=== PATIENT | female | born 1995 | race Two or more races ===

== ENCOUNTER 2025-02-05 19:44 | Emergency (ER) | payer OTHER, SELFPAY ==
--- NOTE | ~2025-02-05 | XR_ITS ---
CLINICAL HISTORY: fall down stairs 3 view left foot Comparison: None Findings: Bones intact. No dislocations. No significant arthritic change or erosions. No ankle effusion. No radiopaque foreign body. IMPRESSION: 1. No acute findings. This document has been electronically signed by: Ralph Harrison MD on 02/05/2025 20:36:18
--- NOTE | ~2025-02-05 | XR_ITS ---
CLINICAL HISTORY: fall down stairs 3 view left ankle Comparison: None Findings: No acute fractures. Ankle mortise intact. No significant loss of joint space, osteophytes, or erosions. No ankle effusion. No radiopaque foreign body. IMPRESSION: 1. No acute findings. This document has been electronically signed by: Ralph Harrison MD on 02/05/2025 20:36:51
--- NOTE | 2025-02-05 19:47 | ED_ITS ---
HPI - Extremity Injury (Lower) General Chief Complaint: Extremity Injury, Lower Stated Complaint: ankle injury Time Seen by Provider: 02/06/25 00:29 Source: patient Mode of arrival: ambulatory Limitations: no limitations History of Present Illness ED Provider: moreno isaac np HPI Narrative: Patient is a 29-year-old female who presents emergency department for evaluation of traumatic left ankle pain s/p mechanical trip and fall on the stairs just prior to arrival. No head strike or loss of consciousness. Pain with weight- bearing/movement of the ankle primarily to the lateral malleolus. Denies prior injury. Denies numbness tingling or cold sensation to the ankle. Related Data Allergies Allergy/AdvReac Type Severity Reaction Status Date / Time dog dander [DOG DANDER] Allergy Mild SNEEZING Verified 02/05/25 19:50 Review of Systems Review of Systems: Yes all other systems are reviewed and are negative PMFSH Past Medical History Attestation statement: The following information was validated with the patient. Source: old records reviewed Physical Exam Vital Signs: Vital Signs: Last Vital Signs Temp 98.3 F 02/05/25 19:50 Pulse 89 02/05/25 19:50 Resp 18 02/05/25 19:50 BP 126/90 H 02/05/25 19:50 Pulse Ox 99 02/05/25 19:50 O2 Del Method Room Air 02/05/25 19:50 BMI result Body Mass Index 27.5 Appearance: Alert.?Oriented to person, place and time. No acute distress.?Normal affect. CVS: Heart sounds normal. Normal heart rate and rhythm.? Pulses normal.?? Respiratory: No respiratory distress.? Lung sounds clear to auscultation bilaterally? Skin: Skin warm and dry.? Normal skin color.?? Extremities: Localized edema to the left lateral malleolus with tenderness upon palpation. No ecchymosis. No deformity. 2+ DP/PT pulse. Decreased AROM with flexion and extension of the ankle. Neuro: Moves all extremities spontaneously. Sensation intact bilaterally. Ambulates with antalgic gait. Course Course Course Narrative: This is a Rapid Medical Exam performed in triage by Teresita He PA-C. Full HPI, ROS and PE to be performed by primary ED provider. 29-year-old female presenting to the ED c/o L ankle pain s/p trip & fall down stairs (3 stairs), misjudged the bottom step. Denies head trauma or LOC. unable to ambulate since incident PE: L ankle w/mild swelling & ttp. +ttp to lateral foot. NV intact Plan: X-ray Medical Decision Making Medical Decision Making MDM Narrative: Patient is a 29-year-old female presents emergency department for evaluation of traumatic left ankle pain as per HPI. Differential including fracture, dislocation, sprain. XR is without acute osseous abnormality favoring a sprain as etiology for pain. Extremities neurovascularly intact distally. Placed in an Aircast provided with crutches and reviewed conservative treatment. Outpatient follow-up with PCP discussed strict return precautions. All questions answered. Differential Diagnosis Differential Diagnoses: The differential diagnosis associated with the presentation includes (See narrative above) Independent Interpretation I performed an independent interpretation of an: Plain X-Ray (See narrative above) Radiology Impression Discussion of test interpretation with radiology: I have reviewed the radiologist's reading. Radiologist Impression: 3 view left foot Comparison: None Findings: Bones intact. No dislocations. No significant arthritic change or erosions. No ankle effusion. No radiopaque foreign body. IMPRESSION: 1. No acute findings. 3 view left ankle Comparison: None Findings: No acute fractures. Ankle mortise intact. No significant loss of joint space, osteophytes, or erosions. No ankle effusion. No radiopaque foreign body. IMPRESSION: 1. No acute findings. External Record Review External record reviewed: Outpatient record Prescription Management I considered prescription management with: Pain Medication Discharge Plan Discharge Clinical Impression: Ankle sprain Qualifiers: Encounter type: initial encounter Laterality: left Patient Disposition: Home, Self-Care Instructions: Ankle Sprain (DC), Crutch Instructions (ED), R.I.C.E. Treatment (ED) Additional Instructions: You can take ibuprofen 200 mg, 3 tablets (600mg) every 6-8 hours as needed for pain, in addition to Tylenol 500 mg, 2 tablets (1,000mg) every 4-6 hours as needed for pain, but not to exceed 3 doses daily (3,000mg).? Apply ice for 10-15 minutes 4-6 times daily. Use crutches and Aircast as provided. Follow-up with primary care doctor. Return with any new or worsening symptoms or concerns. Referrals: Physician,None [Primary Care Provider] - Print Language: Arabic
[2025-02-05 19:50] VITALS: BP 126/90; PULSE 89; RESP 18; TEMP 36.8; O2SAT 99; BMI 27.5
[2025-02-06 01:09] VITALS: BP 102/56; PULSE 67; RESP 16; TEMP 36.8; O2SAT 99
[2025-02-06 01:57] VITALS: BP 102/56; PULSE 62; RESP 16; TEMP 36.8; O2SAT 99
== END 2025-02-06 01:58 | disposition home or self-care (01) ==
PROVIDERS: Emergency Provider Emergency Medicine Emergency Medical Services
DX: S93.402A Sprain of unspecified ligament of left ankle, initial encounter (principal); W10.8XXA Fall (on) (from) other stairs and steps, initial encounter; Y93.89 Activity, other specified; Y92.9 Unspecified place or not applicable; Y99.9 Unspecified external cause status
CPT/HCPCS: 73610; 73630; 99283; 99284

== ENCOUNTER → 2025-02-05 19:47 | Outpatient (BNV) | payer OTHER, SELFPAY | PROVIDERS: Visit Provider Radiology Diagnostic Radiology | DX: M25.572 Pain in left ankle and joints of left foot (principal); M79.672 Pain in left foot | CPT/HCPCS: 73610; 73630 ==